=== PATIENT | male | born 1985 | race Caucasian/White ===

== ENCOUNTER 2024-06-14 20:30 | Emergency (ER) | payer OTHER ==
[~2024-06-14] VITALS: Ht 172.7 cm; Wt 93.4 kg
[2024-06-14 21:08] VITALS: BP_SYST 175; PULSE 89; RESP 20; TEMP 98.9; O2SAT 100
[2024-06-14] MEDS ORDERED: IBUP-1971 PO (22:51)
[2024-06-14] MEDS ORDERED: CEPH-548 PO (22:51)
[2024-06-14] MEDS ORDERED: HYDR-3917 PO (22:51)
[2024-06-14] MEDS: LIDOCAINE 1% 10 MG/ML, 20 ML MDV INJ ONE (22:54)
[2024-06-14 23:01] VITALS: BP_SYST 170; PULSE 85; RESP 18; TEMP 98.7; O2SAT 98
== END 2024-06-14 23:01 | disposition home or self-care (01) ==
LOC: SED 20:30
DX: L02.31 Cutaneous abscess of buttock (principal); R03.0 Elevated blood-pressure reading, without diagnosis of hypertension; E11.9 Type 2 diabetes mellitus without complications
CPT/HCPCS: 99283